=== PATIENT | male | born 1995 | race African-American/Black ===

== ENCOUNTER 2019-04-03 00:03 | Inpatient (IN) | payer OTHER ==
[2019-04-03] VITALS (16 sets, daily range): BP systolic 104–149; BP diastolic 56–98
[~2019-04-03] VITALS: Ht 182.9 cm; Wt 101.7 kg
--- NOTE | 2019-04-03 00:05 | NUR ---
IVF INFUSING....500CC'S IN...500 CC TO GO IN EMS BAG.
--- NOTE | 2019-04-03 00:20 | NUR ---
VOIDED 450 CC
[2019-04-03 00:58] LABS: HEMOGLOBIN 14.6 g/dl (14.0-18.0); IMMATURE GRANULOCYTES 0.4 % (0.0-5.0); MEAN CORPUSCULAR HGB 26.4 pG CALC (26.0-32.0); MEAN CORPUSCULAR HGB CONC 31.1 g/L CALC (32.0-36.0); NEUT# 9.73 thou/uL (1.82-7.42); RED BLOOD COUNT 5.53 mill/uL (4.70-6.10); URINE BILIRUBIN - DIPSTICK NEGATIVE (NEGATIVE); URINE BLOOD DIPSTICK NEGATIVE (NEGATIVE); URINE COLOR YELLOW; URINE GLUCOSE - DIPSTICK NEGATIVE (NEGATIVE); URINE KETONE NEGATIVE (NEGATIVE); URINE LEUK ESTERASE NEGATIVE (NEGATIVE); URINE NITRITE - DIPSTICK NEGATIVE (Negative); URINE PROTEIN - DIPSTICK NEGATIVE (NEG-TRACE); URINE SPECIFIC GRAVITY <=1.005; URINE UROBILINOGEN - DIPSTICK 0.2 E.U./dL (0.2)
[2019-04-03 01:00] LABS: BARBITURATES NEGATIVE (NEGATIVE); COCAINE NEGATIVE (NEGATIVE); METHADONE NEGATIVE (NEGATIVE); OXCYCODONE NEGATIVE (NEGATIVE); TETRAHYDROCANNABIONOL NEGATIVE (NEGATIVE); TRICYLIC ANTIDEPRESSANTS NEGATIVE (NEGATIVE)
[2019-04-03 01:04] LABS: GFR > 60 ML/MIN (>=60 (CALC)); GFR FOR AFR.AMER. > 60 ML/MIN (>=60 (CALC))
[2019-04-03 01:11] LABS: ALBUMIN 4.5 g/dL (3.2-5.0); ALKALINE PHOSPHATASE 77 u/l (38-126); BILIRUBIN, TOTAL 1.1 mg/dL (0.0-1.4); BUN 11 mg/dL (9-20); BUN/CREATININE RATIO 14 (12-20 (CALC)); CARBON DIOXIDE 22 mmol/l (22-30); CHLORIDE 104 mmol/l (95-108); CREATININE 0.8 mg/dL (0.7-1.3); GFR > 60 ML/MIN (>=60 (CALC)); GFR FOR AFR.AMER. > 60 ML/MIN (>=60 (CALC)); SGOT/AST 33 u/l (17-59); SODIUM 135 mmol/l (137-146); TOTAL PROTEIN 7.9 g/dL (6.3-8.2)
[2019-04-03 01:12] LABS: ANION GAP 14 (6-22 (CALC)); POTASSIUM 5.3 mmol/l (3.5-5.1)
--- NOTE | 2019-04-03 01:50 | NUR ---
RETURNED FROM RADIOLOGY. VOIDED 600 CC PALE YELLOW URINE
--- NOTE | 2019-04-03 01:50 | NUR ---
RETURNED FROM CT. REMAINS CALM.
--- NOTE | 2019-04-03 03:00 | NUR ---
CALL LIGHT ACTIVATED. PT C/O SOB...BUT HAS TAKEN OFF HIS NASAL CANNULA. DYSPNEIC. SAT 82% ON RA. NC RE-APPLIED. SAT INCREASED TO 91%. RT CALLED AND TO BEDSIDE. TO RE-EVAL.
--- NOTE | 2019-04-03 03:02 | NUR ---
RALES/RHONCHI BILAT. WARM/DRY. NO EDEMA.
--- NOTE | 2019-04-03 03:14 | NUR ---
RT APPLIED BIPAP. PT WENT FROM HR 134 TO HR 124 INSTANTLY.
--- NOTE | 2019-04-03 03:20 | NUR ---
PT BREATHING EASIER WITH BIPAP.
--- NOTE | 2019-04-03 03:22 | NUR ---
REPORT TO AMNA MILLS,ICU. RT CALLED TO ASSIST WITH BIPAP TO FLOOR
--- NOTE | 2019-04-03 03:45 | NUR ---
TO FLOOR WI IV/PUMPS/POTABLE MONITOR. BIPAP/RT/ 2 GUARDS
--- NOTE | 2019-04-03 03:50 | NUR ---
PT ARRIVED TO UNIT VIA STRETCHER WITH ER STAFF, RT, AND [address] AND REPIRATIONS EVEN AND SLIGHTLY LABORED. PT ASSISTED SELF FROM STRETCHER TO BED INDEPENDENTLY; LLE SHACKLED TO BED BY GUARDS. ALERT AND ORIENTED X 4. C/O MIDSTERNAL CHEST PAIN. CONNECTED TO ATTACHMENTS. IV BOLUS INFUSING UPON ARRIVAL; SINUS TACH 120'S ON E [employer]. PT ABLE TO ANSWER ALL QUESTIONS. ORIENTED TO ROOM AND CALL LIGHT SYSTEM. PLAN OF CARE REVIEWED. PT ENCOURAGED TO VERBALIZE CONCERNS. PT STATES UNDERSTANDING. SAFETY MEASURES IN PLACE. CALL LIGHT WITHIN REACH.
--- NOTE | 2019-04-03 04:36 | NUR ---
PT RESTING SEMI FOWLERS WITH NO SIGNS OF DISTRESS; BIPAP ON AT 40% 16/6; 100% SPO2; RESPIRATIONS AT 30 AND EVEN. HEART RATE 114. ASSESSMENT COMPLETED AND WNL OTHER THAN RESPIRATORY STATUS; LUNGS ARE CLEAR WITH DIMINISHED BASES. 2 GUARDS REMAIN AT BEDSIDE. WILL CONTINUE TO MONITOR.
--- NOTE | 2019-04-03 06:25 | NUR ---
RT AT BEDSIDE FOR EVAL; BIPAP REMOVED AND PT NOW ON O2 4L VIA NC. WILL CONTINUE TO MONITOR.
--- NOTE | 2019-04-03 06:45 | NUR ---
RECIEVED REPORT FROM AMNA MILLS. ASSUMED PT CARE.
--- NOTE | 2019-04-03 07:00 | NUR ---
PT A&OX4, ABLE TO MAKE NEEDS KNOWN. X2 GUARDS REMAIN AT BEDSIDE, PT SHACKLE TO BED. PT REPORT MIDSTERNAL CP, STATES "IT'S FROM COUGHING SO MUCH. PT REMAINS ST ON TELEMETRY, HR 104. RESPIRATION EVEN/UNLABORED, SA02@99% ON 4LPM VIA NC. SOB WITH EXERTION. ABDOMEN FIRM, NON-TENDER, BSX4 ACTIVE. PP+. CALL LIGHT IN REACH. WILL MONITOR.
--- NOTE | 2019-04-03 07:30 | NUR ---
DIETARY ON UNIT, BREAKFAST TRAY SET UP
--- NOTE | 2019-04-03 08:30 | NUR ---
PT ASSISTED TO BSC FOR BM, LARGE, LT, BROWN SOFT BM NOTED. PT THEN ASSISTED BACK TO BED. PT TRANSFERRED WELL. PT THEN RESHACKLED TO BED BY GUARD.
--- NOTE | 2019-04-03 09:00 | NUR ---
DR. LUCAS AT BEDSIDE FOR ASSESSMENT AND TO DISCUSS PLAN OF CARE, NEW ORDERS RECIEVED TO TRANSFER PT TO [facility] FOR PULMONOLOGY CARE. GUARDS REMAIN AT BEDSIDE AND ARE AWARE OF PENDING TRANSFER. [facility] MOSCOSO NOTIFIED TO START TRANSFER PROCEDURE.
--- NOTE | 2019-04-03 09:15 | NUR ---
XIOMARA, RT AT BEDSIDE FOR TX
--- NOTE | 2019-04-03 10:02 | NUR ---
MICHAEL FROM [facility] TRANSFER [facility] CALLED, UPDATE GIVEN. SHE WILL CALL BACK WITH MORE INFO RECIEVED.
--- NOTE | 2019-04-03 10:19 | NUR ---
MICHAEL FROM [facility] CALLED, THE ACCEPTING DR IS DR. CORBETT, PENDING BED ASSIGNMENT.
--- NOTE | 2019-04-03 11:43 | NUR ---
CALLED [facility] TRANSF[facility] FOR UPDATE ON ROOM ASSIGNMENT. NO ROOM AVAILABLE YET. DR. LUCAS NOTIFIED.
--- NOTE | 2019-04-03 12:18 | NUR ---
PT DIAPHORETIC, TEMP 99. 4. HEAVY BLANKETX3 REMOVED FROM PT. COOL CLOTHS APPLIED TO FOREHEAD, MEDICATED ORDERED. NOTIFIED DR. LUCAS . GUARDS REMAIN AT BEDSIDE, 450ML PALE YELLOW URINE EMPTIED FROM URINAL. CALL LIGHT IN REACH. WILL MONITOR.
--- NOTE | 2019-04-03 12:59 | NUR ---
PT CONTINUES TO BED DIAPHORETIC, COOL CLOTH REPLACED. T-99. PT MEDICATED PREVIOUSLY ORDERED. WILL CONITNUE TO MONITOR.
--- NOTE | 2019-04-03 14:08 | NUR ---
PHARMACY AT BEDSIDE FOR MED REC.
--- NOTE | 2019-04-03 16:00 | NUR ---
MICHAEL FROM [facility] TRANSFER [facility] CALLED, STATED PT WOULD NOT BE TRANSFERRED TODAY PROBABLY, NO BED AVAILABE. THAT IT WAS MORE LIKELY FOR PT TO TRANSFER TOMORROW. DR. LUCAS NOTIFIED WITH UPDATE. NO NEW ORDERS .
--- NOTE | 2019-04-03 16:05 | NUR ---
PT AND GUARDS NOTIFIED WITH UPDATE THAT PT WOULD PROBABLY NOT BE TRANSFERRED TONIGHT.
--- NOTE | 2019-04-03 17:31 | NUR ---
XIOMARA, RT AT BEDSIDE FOR TX.
--- NOTE | 2019-04-03 17:43 | NUR ---
MICHAEL FROM [facility] TRANSFER [facility] CALLED, BED ASSIGNMENT FOR [id number]. PT AND GUARDS NOTIFIED.
--- NOTE | 2019-04-03 18:00 | NUR ---
JOANN NOTIFIED FOR TRANSPORT, NAM GAVE ETA OF 8PM GIVEN. [facility] NOTIFIED, SPOKE WITH LOGAN AT [phone] NOTIFIED OF PT ETA.
--- NOTE | 2019-04-03 19:09 | NUR ---
REPORT RECEIVED FROM AMNA AGUILAR. PT RESTING IN BED SUPINE; ALERT AND ORIENTED. DENIES PAIN. RESPIRATIONS EVEN AND UNLABORED ON 4L OXYGEN VIA NC; NO SOB; 99% SPO2; LUNGS ARE DIMINSHED THROUGHOUT. VSS. IV SITE TO LAC IS PATENT AND FLUSHES WELL. PLAN OF CARE REVIEWED INCLUDING TRANSPORT TO [facility]. NO REQUESTS OR QUESTIONS AT THIS TIME. SAFETY MEASURES IN PLACE. CALL LIGHT WITHIN REACH.
--- NOTE | 2019-04-03 19:28 | NUR ---
CHANGE OF GUARDS.
--- NOTE | 2019-04-03 20:09 | NUR ---
[facility] AT BEDSIDE.
--- NOTE | 2019-04-03 20:10 | NUR ---
Transport instructions given. Patient verbalizes understanding. Discharged in stable condition via [facility] Transport to [facility] with staff. All belongings sent with pt.
--- NOTE | 2019-04-03 20:17 | NUR ---
REPORT CALLED TO SHEREE AT [facility]. LEFT NAME AND CALL BACK NUMBER.
== END 2019-04-03 20:10 | disposition short-term general hospital (02) | DRG 189 ==
LOC: ED 00:03 → ED-I 02:08 → ED 02:26 → ICU 02:27
PROVIDERS: Emergency Medicine; ADMIT Internal Medicine; ATTEND Internal Medicine
PROC: 5A09357 Assistance with Respiratory Ventilation, Less than 24 Consecutive Hours, Continuous Positive Airway Pressure (ICD-10-PCS; principal; 2019-04-03)
DX: J96.01 Acute respiratory failure with hypoxia (principal); F15.10 Other stimulant abuse, uncomplicated; R91.8 Other nonspecific abnormal finding of lung field; F17.210 Nicotine dependence, cigarettes, uncomplicated

== ENCOUNTER 2019-04-16 15:39 | Emergency (ER) | payer OTHER ==
[~2019-04-16] VITALS: Ht 182.9 cm; Wt 98.6 kg
[2019-04-16 16:24] LABS: IMMATURE GRANULOCYTES 0.5 % (0.0-5.0); MEAN CELL VOLUME 84.6 fL CALC (80.0-100.0); MEAN CORPUSCULAR HGB 26.2 pG CALC (26.0-32.0); NEUT# 5.01 thou/uL (1.82-7.42); RED BLOOD COUNT 4.73 mill/uL (4.70-6.10)
[2019-04-16 16:28] LABS: HEMOGLOBIN 12.4 g/dl (14.0-18.0)
[2019-04-16 16:39] LABS: ALBUMIN 3.9 g/dL (3.2-5.0); ALKALINE PHOSPHATASE 50 u/l (38-126); BUN 10 mg/dL (9-20); BUN/CREATININE RATIO 11 (12-20 (CALC)); CARBON DIOXIDE 20 mmol/l (22-30); CHLORIDE 105 mmol/l (95-108); CREATININE 0.8 mg/dL (0.7-1.3); ETHYL ALCOHOL 0 mg/dl (0-30); GFR > 60 ML/MIN (>=60 (CALC)); GFR FOR AFR.AMER. > 60 ML/MIN (>=60 (CALC)); SGOT/AST 18 u/l (17-59); SODIUM 139 mmol/l (137-146); TOTAL PROTEIN 6.8 g/dL (6.3-8.2)
[2019-04-16 16:41] LABS: ANION GAP 17 (6-22 (CALC)); BILIRUBIN, TOTAL 0.4 mg/dL (0.0-1.4); POTASSIUM 3.2 mmol/l (3.5-5.1)
[2019-04-16 17:38] LABS: URINE BILIRUBIN - DIPSTICK NEGATIVE (NEGATIVE); URINE BLOOD DIPSTICK NEGATIVE (NEGATIVE); URINE COLOR YELLOW; URINE GLUCOSE - DIPSTICK NEGATIVE (NEGATIVE); URINE KETONE NEGATIVE (NEGATIVE); URINE LEUK ESTERASE NEGATIVE (NEGATIVE); URINE NITRITE - DIPSTICK NEGATIVE (Negative); URINE PROTEIN - DIPSTICK NEGATIVE (NEG-TRACE); URINE UROBILINOGEN - DIPSTICK 0.2 E.U./dL (0.2)
[2019-04-16 17:41] LABS: BARBITURATES NEGATIVE (NEGATIVE); COCAINE NEGATIVE (NEGATIVE); METHADONE NEGATIVE (NEGATIVE); OXCYCODONE NEGATIVE (NEGATIVE); TETRAHYDROCANNABIONOL NEGATIVE (NEGATIVE); TRICYLIC ANTIDEPRESSANTS NEGATIVE (NEGATIVE)
[2019-04-16 18:01] VITALS: BP 102/40
== END 2019-04-16 18:01 | disposition left against medical advice (07) | DRG 894 ==
LOC: ED 15:39
PROVIDERS: Family Medicine
DX: F19.10 Other psychoactive substance abuse, uncomplicated (principal); J45.909 Unspecified asthma, uncomplicated; Z91.19 Patient's noncompliance with other medical treatment and regimen